=== PATIENT | male | born 1995 | race Two or more races ===

== ENCOUNTER 2022-03-09 14:37 | Outpatient (REF) | payer MEDICAID, SELFPAY ==
[2022-03-09 15:51] LABS: COVID-19 Test Negative (Negative)
== END 2022-03-09 14:38 | disposition home or self-care (01) ==
LOC: HO.LAB 14:37
PROVIDERS: Visit Provider Internal Medicine
DX: Z20.822 Contact with and (suspected) exposure to COVID-19 (principal)
CPT/HCPCS: 87635; C9803